=== PATIENT | female | born 1945 | race Two or more races ===

== ENCOUNTER → 2017-05-30 | Outpatient (REF) | payer MEDICARE ==
[~2017-05-30] MED LIST: /PRAV20TA PO; AMBI10TA PO; AMIT10TA2 PO; AZO PO; CALCTAB22 PO; DILT180C7 OR; ESTR0.5T OR; ESTRODIAL; FISH300C2 OR; FLEXERIL PO; HYDR4TAB OR; LASI20TA PO; LISI40TA PO; LORTAB; METH25IN5 IJ; MORP15TA2 PO; MULTTAB35 PO; OXYB10TA PO; PLAQUENIL PO; PRED10TA2 PO; PRIL20CA PO; SYNT125T PO; VICO5TAB PO; VICODINES TAB OR; VITAMIN B COMPLE1 PO; VITAMIN D50000 UNT PO; ZOFR20TA PO; [UNRECOGNIZED DRUG - OTHER] INJ; morphine sulfate; vesicare PO
== END ==
LOC: M LAB REF 11:26
PROVIDERS: ATTEND Podiatrist
DX: L03.90 Cellulitis, unspecified (principal)

== ENCOUNTER → 2018-05-07 | Outpatient (CLI) | payer MEDICARE ==
[2018-05-07 19:33] LABS: THYROID STIMULATING HORMONE 0.307 uIU/ML (0.358-3.740)
[2018-05-07 19:33] LABS: FREE T4 1.11 NG/DL (0.76-1.46)
== END ==
LOC: M WUC 16:41
DX: E03.9 Hypothyroidism, unspecified (principal)
CPT/HCPCS: 84443

== ENCOUNTER → 2018-06-12 | Outpatient (CLI) | payer MEDICARE ==
[2018-06-12 18:22] LABS: THYROID STIMULATING HORMONE 0.412 uIU/ML (0.358-3.740)
[2018-06-12 18:22] LABS: FREE T4 1.02 NG/DL (0.76-1.46)
== END ==
LOC: M WUC 14:32
DX: E03.9 Hypothyroidism, unspecified (principal)
CPT/HCPCS: 84443